=== PATIENT | female | born 1945 | race Caucasian/White ===

== ENCOUNTER 2016-10-28 17:17 | Emergency (ER) | payer MEDICARE, BC ==
[~2016-10-28] VITALS: Ht 154.9 cm; Wt 73.4 kg
[2016-10-28] MEDS ORDERED: CALC600T57 PO (17:48)
[2016-10-28] MEDS ORDERED: CENTTAB PO (17:48)
[2016-10-28] MEDS ORDERED: POTA10CA PO (17:48)
[2016-10-28] MEDS ORDERED: LASI40TA PO (17:48)
[2016-10-28] MEDS ORDERED: JANU100T14 PO (17:48)
[2016-10-28] MEDS ORDERED: ASPI1TAB PO (17:48)
[2016-10-28] MEDS ORDERED: CRES5TAB PO (17:48)
[2016-10-28] MEDS ORDERED: ACETAMINOPH W/CODEINE #3 TAB UD PO ONE (18:15)
--- NOTE | 2016-10-28 19:11 | REPUSA ---
CT of the cervical spine Clinical history: injury. Technique: Multiple axial CT images were obtained through the cervical spine without administration o f contrast. Coronal and sagittal 3-D reconstructed images were also obtained. Comparison: None. Findings: The cervical vertebral bodies are in satisfactory positioning and alignment. Large anterior flowing o steophyte is seen throughout the cervical spine. No fractures or dislocations are demonstrated. The o dontoid process is intact. Intervertebral disc spaces are well-maintained. There is no evidence of fa cet subluxation. Moderate facet arthropathy with sclerosis and overhanging osteophytes are seen bilat erally. The neural foramen appear grossly patent. The cervical cranial junction is intact. The cervic al spinal canal demonstrates normal caliber and contour without evidence of spinal stenosis. The surr ounding soft tissues are within normal limits. Impression: 1. No acute fracture or traumatic injury. 2. Large anterior bridging osteophyte seen throughout the cervical spine. 3. Moderate facet arthropathy bilaterally.
--- NOTE | 2016-10-28 19:11 | REPUSA ---
CT of the head Clinical history: Head injury. Technique: Multiple axial CT images were obtained through the head without administration of contrast . Findings: The ventricles and sulci are symmetric bilaterally. There is no evidence of acute hemorrhag e or infarct. There is no midline shift, mass effect, or extra-axial fluid collection. The osseous st ructures are unremarkable. The visualized paranasal sinuses and mastoid air cells are clear. Impression: Negative study.
[2016-10-28] MEDS ORDERED: ACET30TAB PO (19:20)
[2016-10-28 19:30] VITALS: BP 148/70
--- NOTE | 2016-10-29 12:12 | REP ---
AP PELVIS AND LEFT HIP: 10/28/2016. Clinical history: Trauma, hip pain. Findings: There are no prior studies. There are degenerative changes at lumbar disc levels and facets. SI joints show sclerosis on both sides. There is whiskering of bone along the lateral margins of the iliac crests, acetabuli, inferior pubic rami along with the greater trochanters. Pelvic ring intact. No visible fracture. Hips show degenerative change without fracture on this AP pelvis view. Two views of the hip show rim osteophytes at the acetabular margin. Femoral head, neck and trochanters show no fracture or destructive lesion. Impression: 1. There is no evidence of fracture or acute bony finding of the hips and pelvis. There are degenerative changes of the spine and diffuse idiopathic skeletal hyperostosis (DISH), a benign degenerative finding seen in the pelvis and both hips. Signed by Emigdio Cartagena MD 10/29/2016 09:35 A
--- NOTE | 2016-10-29 12:12 | REP ---
THORACIC SPINE THREE VIEWS: 10/28/2016. Clinical history: Trauma. Left shoulder injury. Pain in the back. Findings: No prior studies. Three views include a coned lateral view of the cervicothoracic junction. The AP view shows pedicles, spinous and transverse processes intact. Posterior ribs and medial clavicles grossly intact as visualized. I do not see any significant kyphosis or scoliosis on the lateral or AP view. The lateral view shows flowing osteophytes throughout the thoracic spine without destructive lesion, compression fracture or malalignment. The cervicothoracic junction has fairly normal alignment. Bones are demineralized. Impression: 1. Flowing osteophytes in the spine with anterior and peripheral spurs without compression deformity, disc space narrowing or destructive lesion in the thoracic spine. No abnormal kyphosis or scoliosis. Cervicothoracic junction alignment grossly normal. There is more thickening of the flowing osteophyte formation in the visualized cervical spine on the swimmers view. Question if is there a history of ankylosing spondylitis. Signed by Emigdio Cartagena MD 10/29/2016 09:36 A
--- NOTE | 2016-10-29 12:12 | REP ---
LEFT SHOULDER SERIES, COMPLETE: 10/28/2016. Clinical history: Left shoulder injury, trauma. Findings. There are no prior studies. The AC joint is slightly widened. There is spurring inferiorly at the AC joint from the clavicle and a peripheral acromial spur. There is degenerative spurring at the greater tuberosity of the humeral head and at the inferior margin of the glenohumeral joint but no fracture of the humeral head. There is adequate range of motion with internal and external rotation. No subluxation or dislocation of the humeral head on the scapular Y view. Clavicle, scapula and ribs also show no fracture. Impression: 1. AC and glenohumeral joint degenerative changes and some widening of the AC joint which may reflect first-degree AC joint separation. No definite acute finding. No fracture or subluxation. No abnormal calcification. Signed by Emigdio Cartagena MD 10/29/2016 09:35 A
== END 2016-10-28 20:06 | disposition home or self-care (01) ==
LOC: M ED 19:21
DX: S43.102A Unspecified dislocation of left acromioclavicular joint, initial encounter (principal); S00.03XA Contusion of scalp, initial encounter; W10.9XXA Fall (on) (from) unspecified stairs and steps, initial encounter; Y92.019 Unspecified place in single-family (private) house as the place of occurrence of the external cause; Y93.E2 Activity, laundry; Y99.8 Other external cause status; F33.9 Major depressive disorder, recurrent, unspecified; Z79.82 Long term (current) use of aspirin; Z79.899 Other long term (current) drug therapy; Z88.2 Allergy status to sulfonamides